=== PATIENT | female | born 1995 | race Two or more races ===

== ENCOUNTER 2024-08-28 06:36 | Emergency (ER) | payer BC, OTHER ==
[~2024-08-28] VITALS: Ht 152.4 cm; Wt 89.1 kg
--- NOTE | 2024-08-28 07:39 | ED.PDOC ---
GI ASSESSMENT HPI Comments 28 y.o female presents to the ED for a chief complaint of rectal bleeding with diarrhea that started last night around 1900, described as maroon red associated with bright red emesis x one hour ago. Patient reports recent laparoscopy on 08/26/24 at [facility] by naphthalene still operator Dr. Stockton, since procedure had hematuria. Patient describes emesis as "watermelon color with chunks" but denies any recent red colored food consumption. Patient also complains of diffused abdominal and back pain associated with dizziness on exertion and increased thirst. Patient had ovarian cyst removed without ovary removal and has a follow up appointment on 09/08/24. She denies any blood thinner use at this time. She was placed on Tylenol, Colace, Advil/Motrin and Oxycodone. No other associating symptom or pain reported. Chief Complaint: GI Bleed Time Seen by MD: 07:01 Reviewed Notes: Nurses Notes, Medications, Allergies Allergies: Coded Allergies: Penicillins (Verified Allergy, Unknown, 08/28/24) Information Source: Patient Mode of Arrival: Ambulatory Timing: Days (1) Duration: Since onset Quality: Aching Vomitus: Bloody Stool: Loose Severity: Moderate Recent: None Recent Hx of: Other (laparoscopy) Pain Location: Diffuse Modifying Factors: Nothing Associated sign and symptoms: Hematemesis, Abdominal Pain, Blood in Stool Past Medical History PAST MEDICAL HISTORY: Thyroid Surgical History (Other): laparoscopy [employer] History: Ovarian Cysts Family History Family History: Reviewed,noncontributory to illness Social History Smoker: Non-Smoker Alcohol: Denies ETOH Use Drugs: Denies Drug Use Lives In: Home Constitutional: denies: chills, diaphoresis, fatigue, fever, malaise, sweats, weakness, others EENTM: denies: blurred vision, double vision, ear bleeding, ear discharge, ear drainage, ear pain, ear ringing, eye pain, eye redness, hearing loss, mouth pain, mouth swelling, nasal discharge, nose bleeding, nose congestion, nose pain, photophobia, tearing, throat pain, throat swelling, voice changes, others Respiratory: denies: cough, hemoptysis, orthopnea, SOB at rest, shortness of breath, SOB with excertion, stridor, wheezing, others Cardiovascular: denies: chest pain, dizzy spells, diaphoresis, Dyspnea on exertion, edema, irregular heart beat, left arm pain, lightheadedness, palpitations, PND, syncope, others Gastrointestinal: reports: abdominal pain, hematemesis, rectal bleeding; de nies: abdomen distended, blood streaked bowels, constipated, diarrhea, dysphagia, difficulty swallowing, melena, nausea, poor appetite, poor fluid intake, rectal pain, vomiting, others Genitourinary: denies: abnormal vagina bleeding, burning, dyspareunia, dysuria, flank pain, frequency, hematuria, incontinence, pain, , vagina discharge, urgency, others Neurological: reports: dizziness; denies: fainting, headache, left sided numbness, left sided weakness, numbness, paresthesia, pre-existing deficit, right sided numbness, right sided weakness, seizure, speech problems, tingling, tremors, weakness, others Musculoskeletal: reports: back pain; denies: gout, joint pain, joint swelling, muscle pain, muscle stiffness, neck pain, others Integumetry: denies: bruises, change in color, change in hair/nails, dryness, laceration, lesions, lumps, rash, wounds, others Allergic/Immunocompromised: denies: Difficulty Healing, Frequent Infections, Hives, Itching, others Hematologic/Lymphatic: denies: anemia, blood clots, easy bleeding, easy bruising, swollen glands, others Endocrine: denies: excessive hunger, excessive sweating, excessive thirst, excessive urination, flushing, intolerance to cold, intolerance to heat, unexplained weight gain, unexplained weight loss, others Psychiatric: denies: anxiety, bipolar disorder, depression, hopeless, panic disorder, schizophrenia, sleepless, suicidal, others All Other Systems: Reviewed and Negative Physical Exam General Appearance: Normal HEENT: Normal ENT Inspection, Other (Dry mouth ) Neck: Normal Inspection Respiratory: Lungs Clear, No Respiratory Distress Cardiovascular: Tachycardia (at 113) Breast Exam: Deferred Gastrointestinal: Diffuse, Tenderness (on palpation ), Other (bilateral flank pain. Hemoccult negative) Genitalia: Deferred Pelvic: Deferred Rectal: Deferred Extremities: Normal inspection Neurologic: Alert, Normal Affect, Normal Mood Cerebellar Function: Normal Reflexes: Normal Skin: Other (3 laparoscopic incisions with steri strips in place that are dry, clean and intact) Lymphatic: No Adenopathy Was a procedure done? Was a procedure done?: No GI differential Dx Differential Diagnosis: Esophageal rupture, GI hemorrhage, Ovarian cyst/torsion, Trauma intraabdominal, Anemia, Esophageal Varicies X-Ray, Labs, Meds, VS Vital Signs Date Time Temp Pulse Resp B/P (MAP) Pulse Ox O2 Delivery O2 Flow Rate FiO2 08/28/24 10:12 98.6 100 16 128/96 (107) 97 98.6 08/28/24 10:12 100 16 97 Room Air 08/28/24 08:01 71 19 96 Room Air* 0 21 08/28/24 07:27 20 94 Room Air 08/28/24 07:27 99.2 111 20 123/83 (96) 94 99.2 08/28/24 06:40 99.2 113 19 151/104 (120) 94 Lab Test 08/28/24 07:11 Range/Units White Blood Count 12.2 H 4.4-10.8 10^3/uL Red Blood Count 4.54 4.0-5.20 10^6/uL Hemoglobin 12.5 12.2-16.2 g/dL Hematocrit 37.0 36.0-46.0 % Mean Corpuscular Volume 81.5 80.0-100.0 fL Mean Corpuscular Hemoglobin 27.6 L 28.0-32.0 pg Mean Corpuscular Hemoglobin Concent 33.8 32.0-36.0 g/dL Red Cell Distribution Width 15.0 H 11.8-14.3 % Platelet Count 217 140-450 10^3/uL Mean Platelet Volume 8.8 6.9-10.8 fL Neutrophils (%) (Auto) 87.4 H 37.0-80.0 % Lymphocytes (%) (Auto) 7.7 L 10.0-50.0 % Monocytes (%) (Auto) 4.7 0.0-12.0 % Eosinophils (%) (Auto) 0.1 0.0-7.0 % Basophils (%) (Auto) 0.1 0.0-2.0 % Neutrophils # (Auto) 10.7 H 1.6-8.6 10 ^3/uL Lymphocytes # (Auto) 0.9 0.4-5.4 10 ^3/uL Monocytes # (Auto) 0.6 0-1.3 10 ^3/uL Eosinophils # (Auto) 0 0-0.8 10 ^3/uL Basophils # (Auto) 0 0-0.2 10 ^3/uL Nucleated Red Blood Cells 0.0 % Prothrombin Time 10.6 9.3-11.8 sec Prothrombin Time INR 1.00 0.9-1.15 Activated Partial Thromboplast Time 24.5 24.5-34.5 SEC Sodium Level 143 136-145 mmol/L Potassium Level 3.7 3.5-5.1 mmol/L Chloride Level 109 H 98-107 mmol/L Carbon Dioxide Level 27 20-31 mmol/L Anion Gap 7 5-15 Blood Urea Nitrogen 11 9-23 mg/dL Creatinine 0.77 0.550-1.02 mg/dL Glomerular Filtration Rate Calc 109 >90 mL/min BUN/Creatinine Ratio 14.3 10.0-20.0 Serum Glucose 113 H 74-106 mg/dL Calcium Level 9.1 8.7-10.4 mg/dL Total Bilirubin 0.6 0.2-1.0 mg/dL Aspartate Amino Transferase (AST) 241 H 13-40 U/L Alanine Aminotransferase (ALT) 403 H 7-40 U/L Alkaline Phosphatase 117 H 46-116 U/L Total Protein 7.5 5.7-8.2 g/dL Albumin 4.3 3.2-4.8 g/dL Beta HCG, Quantitative 1.7 1.5-4.2 mIU/mL Current Medications Medications (Trade) Dose Ordered Sig/Jan Route Start Time Stop Time Status Last Admin Sodium Chloride 500 ml @ 500 mls/hr Q1H ONCE IV 08/28/24 07:15 08/28/24 08:14 DC 08/28/24 07:45 Exam: CT CT ABD PELVIS W CON-ORAL IV History: SP LAP CYSTECTOMY, NOW WITH GI BLEED TECHNIQUE: A digital set up person image was obtained. During the uneventful, int ravenous and oral administration of contrast material, multislice data acquisition was obtained through the abdomen and pelvis. The data set was subsequently reconstructed into axial images. Images were reviewed on a work station using a combination of axial and multiplanar using a variety of window levels and settings. 100 cc of Omnipaque 300 contrast was injected intravenously. All CT scans at this medical facility are performed using dose modulation techniques as appropriate to a performed exam including the following:Automated exposure control was utilized; adjustment of the MA and/or KV according to patient size; and use of iterative reconstruction technique. Radiation Dose Information: CT Dose: CTDI volume is 16.4 mGy. Dose-length product is 839.51 mGy*cm Comparison: None FINDINGS: There is diffuse fatty infiltration of the liver. The gallbladder, pancreas, kidneys, adrenal glands, and spleen appear within normal limits. There is no evidence of abdominal lymphadenopathy. There are scattered small pockets of free intraperitoneal air which May relate to recent surgery. There is no loculated or free fluid. The stomach grossly appears unremarkable. The small and large bowel loops demonstrate normal caliber. The abdominal aorta and IVC appear within normal limits. The bladder appears within normal limits the degree of distention. Pelvic organs is unremarkable. There is no evidence of a pelvic mass or lymphadenopathy. There is no free fluid collection. There are curvilinear bands of atelectasis in the posterior lung bases. There is no acute osseous abnormality. There are postsurgical changes in the periumbilical anterior abdominal wall. There is some subcutaneous emphysema along the left lower anterior abdominal wall. IMPRESSION: 1. There is no acute process in the abdomen and pelvis.. 2. There are scattered small pockets of free intraperitoneal air which May relate to recent surgery. There are postsurgical changes in the lower anterior abdominal wall. 3. Curvilinear bands of atelectasis in the posterior lung bases. 4. Hepatic steatosis. HS:Y 28-year-old female presents here with bleeding status post cystectomy 2 days ago. Patient states she had a nosebleed today, she vomited blood, she had blood from her stools and also has been having bloody urine. At this time blood work has been done with a hemoglobin of 12.4. CT abdomen pelvis with oral and IV contrast has also been done which demonstrates that there was no acute process in the abdomen and pelvis. There is evidence of scattered and small pockets of free intraperitoneal air which is likely related to her recent surgery. At this time performed a Hemoccult examination on the patient and although the stool appeared to be orangish blood Streaked, the Hemoccult was negative. Vaginal exam also did not demonstrate significant blood. At this time given her vitals are stable and she is well-appearing. I have discharged her home. Advised her to monitor at home and return if symptoms worsen or persist. Patient agreeable and understands. Time of 1ST Reevaluation: 07:28 Reevaluation 1ST: Unchanged Time of 2ND Reevaluation: 14:39 Reevaluation 2ND: Improved Patient Education/Counseling: Diagnosis, Treatment, Prognosis Family Education/Counseling: No Family Present Departure 1 Departure Time of Disposition: 14:37 Impression: Primary Impression: Post-op bleeding Qualified Codes: K91.841 - Postprocedural hemorrhage of a digestive system organ or structure following other procedure Disposition: 01 HOME / SELF CARE / HOMELESS Condition: Stable Additional Instructions: Follow up with the primary care physician in 2-3 days. Return to the ER if symptoms worsen or persist. Critical Care Note Critical Care Time?: No Stability Stability form required: No I personally scribed for ANITHA ESTRELLA MD ([email or web address]) on 08/28/24 at 07:39. Electronically submitted by Meri Hannah ([facility]). I personally scribed for ANITHA ESTRELLA MD ([email or web address]) on 08/28/24 at 07:40. Electronically submitted by Meri Hannah ([facility]). I personally scribed for ANITHA ESTRELLA MD ([email or web address]) on 08/28/24 at 07:41. Electronically submitted by Meri Hannah ([facility]). I personally scribed for ANITHA ESTRELLA MD ([email or web address]) on 08/28/24 at 12:32. Electronically submitted by Meri Hannah ([facility]). I personally scribed for ANITHA ESTRELLA MD ([email or web address]) on 08/28/24 at 14:41. Electronically submitted by Meri Hannah ([facility]). ANITHA ESTRELLA MD Aug 28, 2024 07:39
[2024-08-28 07:43] LABS: Basophils # (auto) 0 10 ^3/uL (0-0.2); Basophils % (auto) 0.1 % (0.0-2.0); Eosinophils # (auto) 0 10 ^3/uL (0-0.8); Eosinophils % (auto) 0.1 % (0.0-7.0); Hemoglobin 12.5 g/dL (12.2-16.2); Lymphocytes # (auto) 0.9 10 ^3/uL (0.4-5.4); Lymphocytes % (auto) 7.7 % (10.0-50.0); Mean Corpuscular Hemoglobin 27.6 pg (28.0-32.0); Mean Corpuscular Hgb Conc. 33.8 g/dL (32.0-36.0); Mean Corpuscular Volume 81.5 fL (80.0-100.0); Monocytes # (auto) 0.6 10 ^3/uL (0-1.3); Monocytes % (auto) 4.7 % (0.0-12.0); Neutrophils # (auto) 10.7 10 ^3/uL (1.6-8.6); Neutrophils % (auto) 87.4 % (37.0-80.0); Platelet Count (auto) 217 10^3/uL (140-450); Red Blood Cells 4.54 10^6/uL (4.0-5.20); White Blood Cell 12.2 10^3/uL (4.4-10.8)
[2024-08-28] MEDS: SODIUM CHLORIDE 0.9% 500 ML IV ONE (07:45)
[2024-08-28 07:57] LABS: Partial Thromboplastin Time 24.5 SEC (24.5-34.5); Prothrombin Time 10.6 sec (9.3-11.8)
[2024-08-28 08:01] VITALS: PULSE 71; RESP 19; O2SAT 96
[2024-08-28 08:07] LABS: Albumin 4.3 g/dL (3.2-4.8); Anion Gap 7 (5-15); BUN/Creatinine Ratio 14.3 (10.0-20.0); Bilirubin, Total 0.6 mg/dL (0.2-1.0); Blood Urea Nitrogen 11 mg/dL (9-23); Calcium 9.1 mg/dL (8.7-10.4); Carbon Dioxide 27 mmol/L (20-31); Potassium 3.7 mmol/L (3.5-5.1); Sodium 143 mmol/L (136-145); Total Protein 7.5 g/dL (5.7-8.2)
[2024-08-28 08:20] LABS: Alanine Aminotransferase 403 U/L (7-40); Alkaline Phosphatase 117 U/L (46-116); Aspartate Aminotransferase 241 U/L (13-40); Chloride 109 mmol/L (98-107); Glucose 113 mg/dL (74-106)
--- NOTE | 2024-08-28 12:19 | DVH ---
Exam: CT CT ABD PELVIS W CON-ORAL IV History: SP LAP CYSTECTOMY, NOW WITH GI BLEED TECHNIQUE: A digital washhouse worker image was obtained. During the uneventful, intravenous and oral administra tion of contrast material, multislice data acquisition was obtained through the abdomen and pelvis. T he data set was subsequently reconstructed into axial images. Images were reviewed on a work station using a combination of axial and multiplanar using a variety of window levels and settings. 100 cc of Omnipaque 300 contrast was injected intravenously. All CT scans at this medical facility are performed using dose modulation techniques as appropriate t o a performed exam including the following:Automated exposure control was utilized; adjustment of the MA and/or KV according to patient size; and use of iterative reconstruction technique. Radiation Dose Information: CT Dose: CTDI volume is 16.4 mGy. Dose-length product is 839.51 mGy*cm Comparison: None FINDINGS: There is diffuse fatty infiltration of the liver. The gallbladder, pancreas, kidneys, adrenal glands, and spleen appear within normal limits. There is no evidence of abdominal lymphadenopathy. There are scattered small pockets of free intraper itoneal air which May relate to recent surgery. There is no loculated or free fluid. The stomach grossly appears unremarkable. The small and large bowel loops demonstrate normal caliber. The abdominal aorta and IVC appear within normal limits. The bladder appears within normal limits the degree of distention. Pelvic organs is unremarkable. Th ere is no evidence of a pelvic mass or lymphadenopathy. There is no free fluid collection. There are curvilinear bands of atelectasis in the posterior lung bases. There is no acute osseous abnormality. There are postsurgical changes in the periumbilical anterior a bdominal wall. There is some subcutaneous emphysema along the left lower anterior abdominal wall. IMPRESSION: 1. There is no acute process in the abdomen and pelvis.. 2. There are scattered small pockets of free intraperitoneal air which May relate to recent surgery. There are postsurgical changes in the lower anterior abdominal wall. 3. Curvilinear bands of atelectasis in the posterior lung bases. 4. Hepatic steatosis. HS:Y
[2024-08-28] MEDS: GASTROGRAFIN 30 ML SOL ONE (13:12)
[2024-08-28] MEDS: IOHEXOL 300 MG/ML 100ML BOTTLE IJ ONE (13:12)
[2024-08-28 15:24] VITALS: BP 139/90; PULSE 98; RESP 20; TEMP 98.9; O2SAT 98
== END 2024-08-28 15:26 | disposition home or self-care (01) ==
LOC: ER 06:36
DX: N99.821 Postprocedural hemorrhage of a genitourinary system organ or structure following other procedure (principal); R10.2 Pelvic and perineal pain; Z98.890 Other specified postprocedural states; Z88.0 Allergy status to penicillin
CPT/HCPCS: 36415; 74177; 80053; 84702; 85025; 85610; 85730; 99285; Q9963; Q9967